=== PATIENT | female | born 1985 ===

== ENCOUNTER 2018-05-13 09:05 | Emergency (ER) | payer OTHER ==
--- NOTE | 2018-05-13 11:57 | OBHP ---
Datetime: 05/13/2018 10:13 Admit Comment, IP Provider: Patient is a 32 year old female at 35.4 wks, LMP unsure, JEFF 06/13/18 by US as per patient. She presents for NST secondary to GDM, referred by her primary Dr. York. Patient states (+) movement and denied contractions, vaginal bleeding or discharge. Denies rec ent sexual activity. PNC: f/u Dr. York. This is noted for GDM. Her next appt is 05/20/18. Fasting glucose ranges 80-90, 2 hr post-prandial 125-170. Today, fasting 95 and 2 hr post-prandial 108. OBHx: G1 - vaginal delivery at 37 weeks in 2015, weight 6 lbs 13oz at [facility]. Patient had GDM, diet controlled, no other complications. GynHx: menarche at 11 y/o PCOS diagnosed at 27 y/o as per patient, had irregular cycles since then every 3-4 months, flow la sting 4-5 days Denies STDs Denies pap smears PMHx: GDMx2, sciatica PSHx: denies Meds: PNV Allergies: NKDA Social: not currently working, denies drug/alcohol/tobacco use. Legally . FamilyHx: Mother 56 yo and father 64 yo both alive and have DM and HTN. A/P: 32 year old female at 35.4 wks presents for NST secondary to GDM. Category 1. 1. NST - within normal limits 2. Vital signs stable 3. Patient was counseled on glycemic control 4. Follow up with primary care provider, Dr. York, as scheduled, 05/20/18 Case reviewed and plan discussed with attending Dr. Toure. LEYLA Encinas Attending Note: patient seen, evaluated and examined by me with MS-3. I agree with the above as do cumented. Patient in stable condition upon discharge from unit. Pelvic Type - PN: Not Done Extremities - PN: Normal Abdomen - PN: Normal Back - PN: Normal Breast - PN: Not Done Lungs - PN: Normal Heart - PN: Normal Thyroid - PN: Normal Neurologic - PN: Normal HEENT - PN: Normal General - PN: Normal FHR - Baseline A Provider: 145 Membranes, Provider: Intact Contraction Comments Provider: none Comments, ACOG Physical Exam: Abdomen: Fundal height 36.5 cm Gestation - Est Wks by US: 35.4 Vital Signs Provider: Reviewed; Within Normal Limits NICHD Variability Prov Fetus A: Moderate 6-25bpm NICHD Accel Fetus A IP Provider: [id number] FHR Category Provider Fetus A: Category I NICHD Decel Fetus A IP Provider: None Dilatation, Provider: deferred Genitourinary Exam: Not Done DTRs - PN: Not Done
[2018-05-13 15:00] VITALS: BP 103/56; PULSE 103; TEMP 97.2
== END 2018-05-13 10:25 | disposition home or self-care (01) ==
LOC: C.EROB 09:05
DX: Z36.89 Encounter for other specified antenatal screening (principal)

== ENCOUNTER 2018-06-01 07:16 | Inpatient (IN) | payer OTHER ==
[2018-06-01 07:30] VITALS: BMI 33.6
[2018-06-01] MEDS ORDERED: Lactated Ringer's 1,000 ML IV SCH (08:30)
[2018-06-01 09:48] LABS: SQUAMOUS EPITHIAL 39 /hpf (0-5); URINE BACTERIA MANY (<OCC); URINE BILIRUBIN NEGATIVE (NEGATIVE); URINE BLOOD NEGATIVE (NEGATIVE); URINE CLARITY Hazy (Clear); URINE COLOR Yellow (YELLOW); URINE GLUCOSE (UA) NORMAL (Normal); URINE LEUKOCYTE ESTERASE 1+ Leu/uL (Negative); URINE PROTEIN NEGATIVE (NEGATIVE); URINE UROBILINOGEN NORMAL mg/dL (0.2-1.0); WBC CLUMPS FEW /hpf
[2018-06-01 09:51] LABS: BASO % 0.5 % (0.0-2.0); EOS # 0.1 K/uL (0.0-0.7); EOS % 1.5 % (0.0-4.0); HEMOGLOBIN 9.4 g/dL (11.0-16.0); LYMPH % 22.2 % (20.0-40.0); MEAN CORPUSCULAR HEMOGLOBIN 17.1 pg (27.0-31.0); MEAN CORPUSCULAR HGB CONC 31.3 g/dL (33.0-37.0); MONO # 0.7 K/uL (0.0-0.8); MONO % 7.9 % (0.0-10.0); NEUT % 67.9 % (50.0-75.0); NRBC % 0.2 % (0.0-2.0); RBC 5.5 Mil/uL (3.80-5.20); RED CELL DISTRIBUTION WIDTH 17.8 % (11.5-14.5); WHITE BLOOD COUNT 8.8 K/uL (4.8-10.8)
[2018-06-01 09:53] LABS: MEAN CELL VOLUME 54.7 fL (81.0-99.0)
[2018-06-01 09:57] LABS: ALBUMIN 3.3 g/dL (3.5-5.0); ALT/SGPT 18 U/L (9-52); AST/SGOT 19 U/L (14-36); BLOOD UREA NITROGEN 7 mg/dL (7-17); CALCIUM 9.1 mg/dl (8.6-10.4); GFR NON-AFRICAN AMERICAN > 60
[2018-06-01] MEDS: Dextrose 5%/Lactated Ringer's 1,000 ML IV SCH ×2 (10:19→19:05)
[2018-06-01] MEDS ORDERED: Oxytocin 30 UNIT 30 UNITS/500 ML BAG IV ONE ×4 (15:31→21:05)
[2018-06-01] MEDS ORDERED: Bupivacaine HCl/FentaNYL Cit 100 ML EPI ONE (16:14)
[2018-06-01] MEDS ORDERED: Benzocaine/Menthol 20%-0.5% Topical Spray (60 ml) TOP PRN (23:33)
[2018-06-01] MEDS ORDERED: Oxycodone/Acetaminophen 5/325 mg Tab PO PRN ×2 (23:33)
--- NOTE | 2018-06-02 00:29 | OBDS ---
MATERNAL INFORMATION Provider Comments: baby deliverd in alfred. endometriunm clean 9/9 no com LABOR SUMMARY EDC: 06/13/2018 00:00 No. Babies in Womb: 1 LABOR INFORMATION Onset of Labor: 06/01/2018 12:00 Complete Dilatation: 06/01/2018 23:36 Cervical Ripening Agents: Cytotec @ (Annotations: 50 mcg PO) Group B Beta Strep: Negative MEMBRANES Membranes Rupture Method: Artificial Rupture of Membranes: 06/01/2018 15:17 Length of Rupture (hrs): 8.85 Amniotic Fluid Color: Clear Amniotic Fluid Amount: Moderate Amniotic Fluid Odor: None STAGES OF LABOR Stage 1 hrs: 11 Stage 1 min: 36 Stage 2 hrs: 0 Stage 2 min: 32 Stage 3 hrs: 0 Stage 3 min: 2 Total Time in Labor hrs: 12 Total Time in Labor min: 10 BABY A INFORMATION Delivery Date/Time: 06/02/2018 00:08 Method of Delivery: Vaginal Born in Route : No : N/A Forceps: N/A Vacuum Extraction: N/A Shoulder Dystocia : No SHOULDER DYSTOCIA BABY A Delivery Date/Time: 06/02/2018 00:08 PRESENTATION/POSITION BABY A Presentation: Cephalic Cephalic Presentation: Vertex Vertex Position: Right Occipital Anterior Breech Presentation: N/A PLACENTA INFORMATION BABY A Placenta Delivery Time : 06/02/2018 00:10 Placenta Method of Delivery: Spontaneous Placenta Status: Delivered SCORES BABY A Heart Rate 1 min: >100 bpm Resp Effort 1 min: Good Cry Reflex Irritability 1 min: Cough or Sneeze or Pulls Away Muscle Tone 1 min: Active Motion Color 1 min: Body [place], Extremities Blue SCORE 1 MIN: 9 Heart Rate 5 min: >100 bpm Resp Effort 5 min: Good Cry Reflex Irritability 5 min: Cough or Sneeze or Pulls Away Muscle Tone 5 min: Active Motion Color 5 min: Body [place], Extremities Blue SCORE 5 MIN: 9 INFANT INFORMATION BABY A Gestational Age at Delivery: 38.3 Gestational Status: Term Outcome : Liveborn Infant Condition : Stable Sex: Female IDENTIFICATION/MEDS BABY A ID Band Number: [id number] Sensor Number: [id number] WEIGHT/LENGTH BABY A Birthweight (gms): 3165 Infant Weight (lb): 7 Weight (oz): 0 Length Inches: 19.00 Length cms: 48.3 CORD INFORMATION BABY A Nuchal Cord : Around Neck x1, Loose
--- NOTE | 2018-06-02 06:06 | OBPPN ---
Datetime: 06/02/2018 06:03 PP Pain Prov: Within normal limits PP Nausea Prov: Denies PP Flatus Prov: Yes PP Impression Prov: Normal progression PP Plan Prov: Continue present management PP Progress Note Prov: pt was seen at be side, pain under control,no n/v, tolerating deit,voiding,m in lochia., flatus + ppd#0 s/p cont pp care cont pain ma cbc encourage ambulatio Vital Signs Provider PP: Reviewed; Within Normal Limits
[2018-06-02] MEDS ORDERED: Tdap Vaccine 0.5 ml Vial (10-64 yrs) IM ONE (10:52)
[2018-06-03 00:36] VITALS: O2SAT 99
[2018-06-03 06:35] LABS: BASO # 0.1 K/uL (0.0-0.2); BASO % 0.8 % (0.0-2.0); EOS # 0.5 K/uL (0.0-0.7); HEMOGLOBIN 8.8 g/dL (11.0-16.0); LYMPH # 2.7 K/uL (1.0-4.3); LYMPH % 23.8 % (20.0-40.0); MEAN CELL VOLUME 54.5 fL (81.0-99.0); MEAN CORPUSCULAR HEMOGLOBIN 16.5 pg (27.0-31.0); MEAN CORPUSCULAR HGB CONC 30.3 g/dL (33.0-37.0); MEAN PLATELET VOLUME 8.5 fL (7.2-11.7); MONO # 0.5 K/uL (0.0-0.8); MONO % 4.7 % (0.0-10.0); NEUT # 7.6 K/uL (1.8-7.0); NEUT % 66.7 % (50.0-75.0); NRBC % 0.3 % (0.0-2.0); RBC 5.33 Mil/uL (3.80-5.20); RED CELL DISTRIBUTION WIDTH 17.7 % (11.5-14.5); WHITE BLOOD COUNT 11.4 K/uL (4.8-10.8)
[2018-06-03 08:01] VITALS: BP 103/68; RESP 18; TEMP 97.6
--- NOTE | 2018-06-03 11:32 | OBPPN ---
Datetime: 06/03/2018 11:26 PP Pain Prov: Within normal limits PP Nausea Prov: Denies PP Breasts Prov: Not Done PP Heart Prov: Normal PP Lungs Prov: Normal PP Abdomen/Uterus Prov: Normal PP Lochia Prov: Normal PP Vulva/Perineum Prov: Normal PP CVA Tenderness Prov: Normal PP C/S Incision Prov: Not Applicable PP Progress Prov: Normal PP Comments Phys Exam Prov: FH below Umbilicus, FIrm and Non-tender PP Impression Prov: Normal progression PP Plan Prov: Continue present management IP PP Procedures: None Vital Signs Provider PP: Reviewed; Within Normal Limits Datetime: 06/02/2018 06:03 PP Extremities Prov: Normal PP Progress Note Prov: Patient was seen and examined at bedside. Reports 3/10 pain, controlled well with medication. Reports some lochia. She states she is walking in her room, eating well and has had a bowel movment last night. Patient is both breast feeding and using formula. Denies fever, chills, n ausea, and vomiting. post day #1 s/p continue post care continue pain management cbc encourage ambulation Ferrous sulfate 325 daily
[2018-06-03] MEDS ORDERED: Influenza Vaccine 60 MCG/0.5 ML SYR (3 yr & up) IM ONE (14:28)
[2018-06-03 22:23] VITALS: PULSE 71
== END 2018-06-03 18:00 | disposition home or self-care (01) | DRG 373 ==
LOC: C.EROB 07:16 → C.4D 07:30 → C.4M 06-02 03:39
PROVIDERS: ADMIT Obstetrics & Gynecology; ATTEND Obstetrics & Gynecology
PROC: 10E0XZZ Delivery of Products of Conception, External Approach (ICD-10-PCS; principal; 2018-06-02)
PROC: 10907ZC Drainage of Amniotic Fluid, Therapeutic from Products of Conception, Via Natural or Artificial Opening (ICD-10-PCS; 2018-06-02)
DX: O69.81X0 Labor and delivery complicated by cord around neck, without compression, not applicable or unspecified (principal); Z37.0 Single live birth; Z3A.38 38 weeks gestation of pregnancy